=== PATIENT | female | born 1935 | race Two or more races ===

== ENCOUNTER 2021-11-25 06:15 | Emergency (ER) | payer OTHER ==
[~2021-11-25] VITALS: Ht 162.6 cm; Wt 63.5 kg
[2021-11-25] MEDS ORDERED: CIPRO500 MG PO (11:45)
== END 2021-11-25 12:09 | disposition home or self-care (01) ==
LOC: ER 06:15
DX: R30.0 Dysuria (principal); R10.2 Pelvic and perineal pain

== ENCOUNTER 2021-11-30 12:26 | Emergency (ER) | payer OTHER ==
[~2021-11-30] VITALS: Ht 162.6 cm; Wt 58.5 kg
[~2021-11-30 12:26] MED LIST: CIPRO500 MG PO
[2021-11-30] MEDS ORDERED: VENLAFAXINE H37.5 MG PO (13:07)
== END 2021-11-30 20:57 | disposition home or self-care (01) ==
LOC: ER 12:26
DX: K29.70 Gastritis, unspecified, without bleeding (principal)